=== PATIENT | male | born 1975 | race Caucasian/White ===

== ENCOUNTER → 2019-02-23 | Outpatient (CLI) | payer BC ==
[~2019-02-23] MED LIST: MOTRIN 800800 MG/TAB PO; PREVACID30 MG PO
== END ==
LOC: COL.RAD 14:14
DX: K44.9 Diaphragmatic hernia without obstruction or gangrene (principal)

== ENCOUNTER 2023-12-11 10:14 | Emergency (ER) | payer BC ==
[~2023-12-11] VITALS: Ht 180.3 cm; Wt 95.5 kg
[2023-12-11] MEDS ORDERED: Famotidine 20 MG TAB PO ONE (10:45)
[2023-12-11] MEDS ORDERED: NS 1,000 ML IV ONE (10:45)
[2023-12-11] MEDS ORDERED: Pantoprazole 40 MG in NS 10 ML IV ONE (10:45)
[2023-12-11] MEDS ORDERED: Acetaminophen 500 MG TAB PO ONE (10:45)
[2023-12-11 11:26] LABS: HEMATOCRIT 48.3 % (42.0-52.0); MEAN CELL VOLUME 92 fl (80.0-100.0); MEAN CORPUSCULAR HEMOGLOBIN 32 pg (27-31); MEAN CORPUSCULAR HGB CONC 35 g/dl (33.0-37.0); MEAN PLATELET VOLUME 12.1 fl (7.4-10.4); PLATELET COUNT 178 K/mm3 (130-400); RED BLOOD COUNT 5.25 M/mm3 (4.20-5.60); REDCELL DISTRIBUTION WIDTH-CV 11.9 % (11.5-14.5)
[2023-12-11 11:54] LABS: BAND 22 % (0-10); LYMPHOCYTE 2 % (20.0-51.0); NEUTROPHILS 71 % (42.0-75.2); PLATELET ESTIMATE NORMAL (NORMAL)
[2023-12-11 12:05] LABS: ALANINE AMINOTRANSFERASE 26 U/L (0-55); ALBUMIN 4.1 gm/dL (3.5-5.0); ALKALINE PHOSPHATASE 93 U/L (40-150); ANION GAP 12 mmol/L (7-16); AST,SGOT 21 U/L (5-34); BLOOD UREA NITROGEN 15 mg/dL (9-21); C-REACTIVE PROTEIN 2.35 mg/dL (0.00-0.50); CALCIUM 10.2 mg/dL (8.4-10.2); CARBON DIOXIDE 20 mmol/L (22-29); CHLORIDE 110 mmol/L (98-107); CREATININE, serum 1.29 mg/dL (0.72-1.25); GLUCOSE 89 mg/dL (70-99); POTASSIUM 4.5 mmol/L (3.5-4.5); SODIUM 142 mmol/L (136-145); TOTAL PROTEIN 6.8 gm/dL (6.2-8.1)
[2023-12-11 12:12] LABS: TROPONIN-I < 0.010 ng/mL (0.00-0.033)
[2023-12-11] MEDS ORDERED: TAMIFLU 75MG75 MG PO (13:16)
[2023-12-11 13:33] VITALS: BP 116/81; PULSE 98; TEMP 99.8
== END 2023-12-11 13:35 | disposition home or self-care (01) ==
LOC: COL.ER 10:14
PROVIDERS: Emergency Medicine
DX: J10.1 Influenza due to other identified influenza virus with other respiratory manifestations (principal); Z87.891 Personal history of nicotine dependence
CPT/HCPCS: C9113; J7030